=== PATIENT | male | born 1985 | race Caucasian/White ===

== ENCOUNTER 2019-08-16 21:20 | Emergency (ER) | payer MEDICARE, MEDICAID ==
[2019-08-16 21:46] VITALS: BP 116/69; PULSE 78
--- NOTE | 2019-08-16 22:04 | EDM.PDOC ---
ED HPI GENERAL MEDICAL PROBLEM - General Chief Complaint: Upper Extremity Injury/Pain Stated Complaint: POP OUT SHOLDER Time Seen by Provider: 08/16/19 21:35 Source of Information: Reports: Patient, Family History Limitations: Reports: No Limitations - History of Present Illness INITIAL COMMENTS - FREE TEXT/NARRATIVE: This 33 yo male patient reports to the ED with his mother due to right shoulder pain. The patient reports he was in his room watching TV, went to transfer from his chair to his bed when he fell and hurt his right shoulder. The patient has dislocated his right shoulder 2 times previously and his left shoulder 3 times in the past. Onset: Today Duration: Minutes:, Constant Location: Reports: Upper Extremity, Right Quality: Reports: Other Severity: Moderate Improves with: Reports: None Worsens with: Reports: None Context: Reports: Other Associated Symptoms: Reports: No Other Symptoms Right Upper Shoulder Pain Score (Numeric/FACES): 5 - Related Data Allergies Allergy/AdvReac Type Severity Reaction Status Date / Time No Known Allergies Allergy Verified 03/08/18 17:47 Home Meds: Home Meds Citalopram [Celexa] 0 mg PO ASDIRECTED 04/29/16 [History] Zonisamide [Zonegran] 100 mg PO TID 04/29/16 [History] busPIRone [Buspar] 2 tab PO TID 04/29/16 [History] carBAMazepine [Carbamazepine] 200 mg PO TID 04/29/16 [History] lamoTRIgine 200 mg PO TID 04/29/16 [History] levETIRAcetam [Keppra] 1.5 tab PO BID 04/29/16 [History] Past Medical History HEENT History: Reports: Impaired Vision, Other (See Below) 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 Cardiovascular History: Reports: None Respiratory History: Reports: None Gastrointestinal History: Reports: None Genitourinary History: Reports: None Neurological History: Reports: Cerebral Palsy, Seizure Psychiatric History: Reports: Autism Endocrine/Metabolic History: Reports: None Hematologic History: Reports: None Immunologic History: Reports: None Oncologic (Cancer) History: Reports: None Dermatologic History: Reports: None - Infectious Disease History Infectious Disease History: Reports: Chicken Pox - Past Surgical History Musculoskeletal Surgical History: Reports: Other (See Below) Other Musculoskeletal Surgeries/Procedures:: Many orthopedic procedures in [place] up until 15 yrs old. (hips, ankles, ) Social & Family History - Family History Family Medical History: Noncontributory - Tobacco Use Second Hand Smoke Exposure: No - Caffeine Use Caffeine Use: Reports: None - Recreational Drug Use Recreational Drug Use: No Review of Systems - Review of Systems Review Of Systems: Comprehensive ROS is negative, except as noted in HPI. ED EXAM, GENERAL - Physical Exam Exam: See Below Exam Limited By: No Limitations General Appearance: Alert, WD/WN, Mild Distress Ears: Normal External Exam, Normal Canal, Hearing Grossly Normal, Normal TMs Ear Exam: Bilateral Ear: Auricle Normal, Canal Normal, TM normal Nose: Normal Inspection, Normal Mucosa, No Blood Throat/Mouth: Normal Inspection, Normal Lips, Normal Teeth, Normal Gums, Normal Oropharynx, Normal Voice, No Airway Compromise Head: Atraumatic, Normocephalic Neck: Normal Inspection, Supple, Non-Tender, Full Range of Motion Respiratory/Chest: No Respiratory Distress, Lungs Clear, Normal Breath Sounds, No Accessory Muscle Use, Chest Non-Tender Cardiovascular: Normal Peripheral Pulses, Regular Rate, Rhythm, No Edema, No Gallop, No JVD, No Murmur, No Rub GI/Abdominal: Normal Bowel Sounds, Soft, Non-Tender, No Organomegaly, No Distention, No Abnormal Bruit, No Mass (Male) Exam: Deferred Rectal (Males) Exam: Deferred Back Exam: Normal Inspection, Full Range of Motion, NT Extremities: Arm Pain (right shoulder pain and deformity ) Neurological: Alert, Oriented, CN II-XII Intact, Normal Cognition, Normal Gait, Normal Reflexes, No Motor/Sensory Deficits Psychiatric: Normal Affect, Normal Mood Skin Exam: Warm, Dry, Intact, Normal Color, No Rash Lymphatic: No Adenopathy ED TRAUMA EXTREMITY PROCEDURES - Joint Reduction Right Shoulder Sedation: Conscious Sedation Pre-Procedure NV Status: Normal Post-Procedure NV Status: Normal Technique: Traction/Counter Traction Number of Attempts: 1 Post-Reduction Imaging: Completely Reduced Joint Reduction Complications: No Course - Vital Signs Last Recorded V/S: Last Vital Signs Temp 35.9 C L 08/16/19 21:32 Pulse 78 08/16/19 21:32 Resp 18 08/16/19 21:32 BP 116/69 08/16/19 21:32 Pulse Ox 100 08/16/19 21:32 - Orders/Labs/Meds Orders: Active Orders 24 hr Category Date Time Status Shoulder Comp Rt [CR] Urgent Exams 08/16/19 21:30 Ordered Departure - Departure Time of Disposition: 22:35 Disposition: Home, Self-Care 01 Condition: Fair Clinical Impression: Recurrent dislocation, right shoulder - Discharge Information *PRESCRIPTION DRUG MONITORING PROGRAM REVIEWED*: Not Applicable *COPY OF PRESCRIPTION DRUG MONITORING REPORT IN PATIENT PARAG: Not Applicable Forms: ED Department Discharge Care Plan Goals: The patient and his mother were advised of the examination, initial x-ray results and post reduction results during the visit. The patient was placed in a right shoulder immobilizer. The patient should keep the shoulder immobilized over the next week. The patient should follow-up with his primary care facility in about 1 week. If the patient has any additional symptoms or concerns, the patient should either return to the emergency department or visit his primary care facility. Sepsis Event Note - Evaluation Sepsis Screening Result: No Definite Risk - Focused Exam Vital Signs: Vital Signs Temp Pulse Resp BP Pulse Ox 08/16/19 21:32 35.9 C L 78 18 116/69 100 Date Exam was Performed: 08/16/19 Time Exam was Performed: 22:33 - My Orders Last 24 Hours: My Active Orders 08/16/19 21:30 Shoulder Comp Rt [CR] Urgent - Assessment/Plan Last 24 Hours: My Active Orders 08/16/19 21:30 Shoulder Comp Rt [CR] Urgent
== END 2019-08-16 23:08 | disposition home or self-care (01) ==
LOC: DL.ED 21:20
DX: M24.411 Recurrent dislocation, right shoulder (principal); R56.9 Unspecified convulsions; Z79.899 Other long term (current) drug therapy; W17.89XA Other fall from one level to another, initial encounter
CPT/HCPCS: 01620; 23650; 73020-RT; 73030-RT; 99283-25; 99284